=== PATIENT | female | born 1975 | race Hispanic/Latino ===

== ENCOUNTER 2020-07-06 19:32 | Emergency (ER) | payer MEDICAID ==
[2020-07-06] MEDS ORDERED: ONDANSETRON HCL 4 MG/2 ML VIAL ONE (19:59)
[2020-07-06] MEDS ORDERED: MORPHINE SULFATE 4 MG/1ML SYG ONE (19:59)
[2020-07-06] MEDS ORDERED: TETANUS/DIPHTHERIA TOXOID [ADULT] 0.5 ML VIAL IM ONE (19:59)
== END 2020-07-06 22:54 | disposition home or self-care (01) ==
LOC: EDH 19:32
DX: T23.231A Burn of second degree of multiple right fingers (nail), not including thumb, initial encounter (principal); T20.10XA Burn of first degree of head, face, and neck, unspecified site, initial encounter; T20.112A Burn of first degree of left ear [any part, except ear drum], initial encounter; T20.111A Burn of first degree of right ear [any part, except ear drum], initial encounter; T31.0 Burns involving less than 10% of body surface; Z98.890 Other specified postprocedural states; W40.1XXA Explosion of explosive gases, initial encounter; Y92.89 Other specified places as the place of occurrence of the external cause; Y93.89 Activity, other specified; Y99.8 Other external cause status
CPT/HCPCS: 16000; 71045; 90471; 90714; 96374; 96375; 99284; J2270; J2405